=== PATIENT | male | born 1970 | race Caucasian/White ===

== ENCOUNTER 2021-01-03 06:35 | Day surgery (SDC) | payer OTHER ==
[~2021-01-03] VITALS: Ht 177.8 cm; Wt 106.1 kg
[~2021-01-03 06:35] MED LIST: ALLEGRA60 MG PO; NASONEX17 GM NS; NITROSTAT0.4 MG SL
[2021-01-03] MEDS ORDERED: LEXAPRO10 MG PO (07:02)
[2021-01-03] MEDS ORDERED: OMEPRAZOLE20 M1 PO (07:02)
--- NOTE | 2021-01-03 08:25 | NUR ---
01/03/21 0825 Becca Hanson 1816 PT TO PACU DROWSY, RESPONDS TO ORAL STIMULI, TAKING DEEP BREATHS
--- NOTE | 2021-01-04 12:38 | OR ---
[facility] [address], [place] [address] Signed DATE OF OPERATION: 01/03/2021 SURGEON: Antonietta Lim MD PREOPERATIVE DIAGNOSIS: Colon screening. POSTOPERATIVE DIAGNOSIS: Polyps x2. PROCEDURE: 1. Total colonoscopy to cecum with cold snare polypectomy x1 and cold morcellation polypectomy x1. ANESTHESIA: Intravenous sedation, fentanyl 150 mcg and Versed 5 mg. INDICATION: This 50-year-old white man is a patient of Dr. Cook of [facility] and is referred for screening colonoscopy. He has no bleeding diarrhea, constipation type symptoms. He has no family history of colon cancer. He does have prior history of gastroesophageal reflux. He is admitted at this time to undergo colonoscopy. He understands the risks of bleeding, infection, and perforation. FINDINGS: The prep was excellent. Complete colonoscopy was undertaken to the cecum without question. Two small polyps, both in sessile, one at the hepatic flexure, the other in the sigmoid, both were excised completely. DESCRIPTION OF PROCEDURE: The patient was brought to the endoscopy suite and placed in lateral decubitus position, given intravenous sedation to a point of slurred speech and nystagmus. Full cardiopulmonary monitoring was maintained. Digital rectal examination showed a normal prostate. The Olympus video colonoscope was passed in the rectum and manipulated throughout the colon noting a sessile polyp at the hepatic flexure. This was excised initially with cold snare technique and additional morcellation polypectomy technique as well. The scope was ultimately advanced to the cecum. The ileocecal valve and appendiceal orifice were normal. Scope was withdrawn from that point. Examination upon withdrawal of scope showed no sign of abnormality. Electronically Signed By: ANTONIETTA LIM MD 01/04/21 1238 PATIENT NAME: KATI DESIR OPERATIVE REPORT DATE OF : 68 REPORT #: [id number] PHYSICIAN: ANTONIETTA LIM MD PCP: STEPHANY COOK REPORT IS CONFIDENTIAL AND NOT TO BE RELEASED WITHOUT AUTHORIZATION [facility] [address] [place] [id number] Signed The site at the hepatic flexure was hemostatic. Further withdrawal of scope showed a small polyp of the proximal sigmoid, which was excised with cold snare technique with a single pass. Further withdrawal showed no other abnormality. Retroflexed view was normal. Scope was removed. The patient was taken to the recovery room in good condition. CONCLUDING DIAGNOSIS: Polyps x2. PLAN: Recommend a repeat colonoscopy in 3-5 years sooner if clinically indicated based on symptoms. He will return to the ongoing care of the primary physician, Dr. Cook. MD JERMAIN Keys/ELAINE /[id number] cc: Stephany Cook Copies: STPEHANY COOK ~ Electronically Signed By: ANTONIETTA LIM MD 01/04/21 1238 PATIENT NAME: KATI DESIR OPERATIVE REPORT DATE OF : 68 REPORT #: [id number] PHYSICIAN: ANTONIETTA LIM MD PCP: STEPHANY COOK REPORT IS CONFIDENTIAL AND NOT TO BE RELEASED WITHOUT AUTHORIZATION
--- NOTE | 2021-01-04 16:53 | PATH ---
[facility] [address] [facility], [place] [address] Signed SPECIMEN(S): A HEPATIC FLEXURE POLYP SPECIMEN(S): B SIGMOID POLYP SPECIMEN SOURCE: A. HEPATIC FLEXURE POLYP B. SIGMOID POLYP CLINICAL HISTORY: Colon screening. Postop: Polyps x 2. MICROSCOPIC DESCRIPTION: Histologic sections of all submitted blocks are examined by light microscopy. These findings, together with the gross examination, support the pathologic diagnosis. FINAL PATHOLOGIC DIAGNOSIS: A. Colon, hepatic flexure, polypectomy: - Tubular adenoma. B. Colon, sigmoid, polypectomy: - Tubular adenoma. BRP:bg:C2NR GROSS DESCRIPTION: Two specimens are received in two containers, labeled "KF." A. The specimen, labeled "KF, hepatic flexure polyp," is received in formalin and consists of five roper soft tissue fragments that measure 0.1-0.5 cm in greatest dimension. The specimen is entirely submitted in cassette (A1). B. The specimen, labeled "KF, sigmoid colon polyp," is received in formalin and consists of two roper soft tissue fragments that measure 0.2 cm in greatest dimension. The specimen is entirely submitted in cassette (B1). JS (under the direct supervision of a pathologist) The Gross Description was prepared using a voice recognition system. The report was reviewed for accuracy; however, sound-alike word errors, addition and/or deletions may occur. If there is any question about this report, please contact Client Services. PERFORMING LABORATORY: The technical component was performed by [employer], [address] [place] [id number] (Clinical Cytopathologist: Cayla Xiao MD; CLIA# [id number]). [facility] PATIENT NAME: KATI DESIR PATHOLOGY DATE OF : 68 REPORT #: [id number] PHYSICIAN: JIA PATHOLOGY PCP: STEPHANY COOK REPORT IS CONFIDENTIAL AND NOT TO BE RELEASED WITHOUT AUTHORIZATION [facility] [address] [place], [place] [address] [address] (CLIA# [id number]). Diagnostician: Henry Simpson MD Pathologist Electronically Signed 01/04/2021 Copies: ~ PATIENT NAME: KATI DESIR PATHOLOGY DATE OF : [birth year] REPORT #: [id number] PHYSICIAN: JIA PATHOLOGY PCP: STEPHANY COOK REPORT IS CONFIDENTIAL AND NOT TO BE RELEASED WITHOUT AUTHORIZATION
== END 2021-01-03 09:05 | disposition home or self-care (01) ==
LOC: DS 06:35
PROVIDERS: ATTEND Surgery
PROC: 0DBL8ZX Excision of Transverse Colon, Via Natural or Artificial Opening Endoscopic, Diagnostic (ICD-10-PCS; 2021-01-03)
PROC: 0DBN8ZX Excision of Sigmoid Colon, Via Natural or Artificial Opening Endoscopic, Diagnostic (ICD-10-PCS; principal; 2021-01-03 07:00)
DX: Z12.11 Encounter for screening for malignant neoplasm of colon (principal); D12.3 Benign neoplasm of transverse colon; D12.5 Benign neoplasm of sigmoid colon; K21.9 Gastro-esophageal reflux disease without esophagitis; Z90.49 Acquired absence of other specified parts of digestive tract; Z98.890 Other specified postprocedural states; Z88.0 Allergy status to penicillin
CPT/HCPCS: 99153; G0500; J2250; J3010; J7121

== ENCOUNTER 2021-01-30 20:39 | Emergency (ER) | payer OTHER ==
[~2021-01-30] VITALS: Ht 177.8 cm; Wt 104.3 kg
[~2021-01-30 20:39] MED LIST changes: +LEXAPRO10 MG PO; +OMEPRAZOLE20 M1 PO
== END 2021-01-31 00:33 | disposition home or self-care (01) ==
LOC: ED 20:39
DX: U07.1 COVID-19 (principal); Z88.0 Allergy status to penicillin; Z79.899 Other long term (current) drug therapy
CPT/HCPCS: 99283